=== PATIENT | male | born 1995 | race Caucasian/White ===

== ENCOUNTER 2017-11-15 09:12 | Emergency (ER) | payer SELFPAY ==
[~2017-11-15] VITALS: Ht 180.3 cm; Wt 79.5 kg
[2017-11-15 11:26] VITALS: BP 138/80
== END 2017-11-15 11:27 | disposition home or self-care (01) ==
LOC: EMS 09:15
DX: M25.512 Pain in left shoulder (principal); R03.0 Elevated blood-pressure reading, without diagnosis of hypertension; W01.0XXA Fall on same level from slipping, tripping and stumbling without subsequent striking against object, initial encounter; Y93.89 Activity, other specified; Y92.89 Other specified places as the place of occurrence of the external cause; Y99.8 Other external cause status
CPT/HCPCS: 29105; 99284

== ENCOUNTER 2024-07-01 05:07 | Emergency (ER) | payer OTHER ==
[~2024-07-01] VITALS: Ht 180.3 cm; Wt 86.4 kg
[2024-07-01 05:10] VITALS: BP 122/88; PULSE 78; RESP 20; TEMP 97.9
== END 2024-07-01 06:06 | disposition left against medical advice (07) ==
LOC: EMS 05:08
DX: R10.9 Unspecified abdominal pain (principal); Z53.21 Procedure and treatment not carried out due to patient leaving prior to being seen by health care provider

== ENCOUNTER 2025-06-10 12:04 | Emergency (ER) | payer OTHER ==
[~2025-06-10] VITALS: Ht 180.3 cm; Wt 81.8 kg
[2025-06-10 12:08] VITALS: BP 108/80; PULSE 75; RESP 18; TEMP 97.1; O2SAT 97
== END 2025-06-10 13:24 | disposition left against medical advice (07) ==
LOC: EMS 12:05
DX: T25.022A Burn of unspecified degree of left foot, initial encounter (principal); Z53.21 Procedure and treatment not carried out due to patient leaving prior to being seen by health care provider; Y92.89 Other specified places as the place of occurrence of the external cause